=== PATIENT | male | born 1960 | race Caucasian/White ===

== ENCOUNTER 2017-03-08 07:28 | Day surgery (SDC) | payer BC ==
[~2017-03-08] VITALS: Ht 175.3 cm; Wt 86.2 kg
[~2017-03-08 07:28] MED LIST: ACYCLOVIR800 MG PO; ALEVE220 M1 PO; AMOXICILLIN/CL875 MG OR; AMOXICILLIN500 MG PO; AMOXICILLIN875 MG OR; ANTIVERT12.5 MG PO; ASPIRIN EC81 MG PO; ASPIRIN81 MG PO; AUGMENTIN875TAB PO; BACTRIM DS1 TAB PO; CIALIS20 MG; CIPRO500 MG PO; CIPROFLOXACN500 MG PO; EPIPEN0.3 MG IM; FLEXERIL10 MG PO; FLEXERIL5 M1 PO; FLONASE NASAL50 MCG; FLUTICASONE50 MCG; FLUZONE SPLT1 M1 IM; LEVITRA10 MG PO; LEVITRA20 MG OR; MAALOX/BEN PO; MULTI VIT PO; NAPROSYN500 MG PO; PATANOL0.1 % OP; SINGULAIR10 MG PO; SOLU-MEDROL125 MG IM; TET/DIP TOX1 ML IM; VIAGRA100 MG PO; ZITHROMAX250 MG PO; ZYRTEC10 MG PO; [UNRECOGNIZED DRUG - OTHER] PO
[2017-03-08 10:34] VITALS: BP 135/80
== END 2017-03-08 10:25 | disposition home or self-care (01) | DRG 951 ==
LOC: ENDO 07:28 → ORM 10:30
PROVIDERS: ATTEND Surgery
PROC: 0DJD8ZZ Inspection of Lower Intestinal Tract, Via Natural or Artificial Opening Endoscopic (ICD-10-PCS; principal; 2017-03-08)
DX: Z12.11 Encounter for screening for malignant neoplasm of colon (principal); K63.5 Polyp of colon; K64.1 Second degree hemorrhoids; Z86.010 Personal history of colon polyps

== ENCOUNTER 2017-04-17 14:44 | Emergency (ER) | payer BC ==
[~2017-04-17] VITALS: Ht 175.3 cm; Wt 84.0 kg
[2017-04-17] MEDS ORDERED: CLEOCIN150 MG PO (15:02)
[2017-04-17 15:05] VITALS: BP 113/83
== END 2017-04-17 15:05 | disposition home or self-care (01) | DRG 603 ==
LOC: ED 14:44
DX: L03.116 Cellulitis of left lower limb (principal); S80.862A Insect bite (nonvenomous), left lower leg, initial encounter; W57.XXXA Bitten or stung by nonvenomous insect and other nonvenomous arthropods, initial encounter

== ENCOUNTER 2017-08-26 15:10 | Emergency (ER) | payer BC ==
[~2017-08-26] VITALS: Ht 175.3 cm; Wt 100.0 kg
[~2017-08-26 15:10] MED LIST changes: +CLEOCIN150 MG PO
[2017-08-26 15:51] LABS: HEMATOCRIT 42.3 % (39.0-50.0); HEMOGLOBIN 14.2 g/dl (14.0-18.0); IMMATURE GRANULOCYTES 0.2 % (0.0-1.0); MEAN CELL VOLUME 93.6 fL CALC (80.0-100.0); MEAN CORPUSCULAR HGB 31.4 pG CALC (26.0-32.0); MEAN CORPUSCULAR HGB CONC 33.6 g/L CALC (32.0-36.0); NEUT# 2.71 thou/uL (1.82-7.42); RED BLOOD COUNT 4.52 mill/uL (4.70-6.10); RED CELL DISTRI WIDTH 12.5 % (11.5-15.5)
[2017-08-26] MEDS ORDERED: EPIPEN 2-P0.3 MG/0.3 SC (15:58)
[2017-08-26] MEDS ORDERED: METOPROL TAR25 M1 PO (15:59)
[2017-08-26 16:02] LABS: ALBUMIN 3.6 g/dL (3.2-5.0); ALKALINE PHOSPHATASE 89 u/l (38-126); ANION GAP 16 (6-22 (CALC)); BILIRUBIN, TOTAL 0.4 mg/dL (0.0-1.4); BUN 20 mg/dL (9-20); BUN/CREATININE RATIO 19 (12-20 (CALC)); CARBON DIOXIDE 24 mmol/l (22-30); CHLORIDE 108 mmol/l (95-108); GFR > 60 ML/MIN (>=60 (CALC)); GFR FOR AFR.AMER. > 60 ML/MIN (>=60 (CALC)); POTASSIUM 4.1 mmol/l (3.5-5.1); SGOT/AST 30 u/l (17-59); SGPT/ALT 40 u/l (21-72); SODIUM 145 mmol/l (137-146); TOTAL PROTEIN 6.8 g/dL (6.3-8.2)
[2017-08-26 16:15] LABS: MYOGLOBIN 20 ng/mL (0 - 121)
[2017-08-26 17:35] LABS: URINE BILIRUBIN - DIPSTICK NEGATIVE (NEGATIVE); URINE BLOOD DIPSTICK NEGATIVE (NEGATIVE); URINE COLOR YELLOW; URINE GLUCOSE - DIPSTICK NEGATIVE (NEGATIVE); URINE KETONE NEGATIVE (NEGATIVE); URINE LEUK ESTERASE NEGATIVE (NEGATIVE); URINE NITRITE - DIPSTICK NEGATIVE (Negative); URINE PROTEIN - DIPSTICK NEGATIVE (NEG-TRACE); URINE SPECIFIC GRAVITY 1.025; URINE UROBILINOGEN - DIPSTICK 0.2 E.U./dL (0.2)
[2017-08-26 17:38] LABS: URINE CLARITY CLEAR
[2017-08-26] MEDS ORDERED: TORADOL PO (17:54)
[2017-08-26 17:59] VITALS: BP 118/61
== END 2017-08-26 17:58 | disposition home or self-care (01) | DRG 206 ==
LOC: ED 15:10
PROVIDERS: Family Medicine
DX: M94.0 Chondrocostal junction syndrome [Tietze] (principal)

== ENCOUNTER 2018-06-10 08:43 | Emergency (ER) | payer BC ==
[~2018-06-10] VITALS: Ht 175.3 cm; Wt 82.3 kg
[~2018-06-10 08:43] MED LIST changes: +EPIPEN 2-P0.3 MG/0.3 SC; +METOPROL TAR25 M1 PO; +TORADOL PO
[2018-06-10 09:42] LABS: HEMATOCRIT 40.2 % (39.0-50.0); HEMOGLOBIN 13.5 g/dl (14.0-18.0); IMMATURE GRANULOCYTES 1.2 % (0.0-5.0); MEAN CELL VOLUME 93.9 fL CALC (80.0-100.0); MEAN CORPUSCULAR HGB 31.5 pG CALC (26.0-32.0); MEAN CORPUSCULAR HGB CONC 33.6 g/L CALC (32.0-36.0); NEUT# 5.06 thou/uL (1.82-7.42); RED BLOOD COUNT 4.28 mill/uL (4.70-6.10)
[2018-06-10 09:44] LABS: ALBUMIN 3.5 g/dL (3.2-5.0); ALKALINE PHOSPHATASE 82 u/l (38-126); ANION GAP 13 (6-22 (CALC)); BILIRUBIN, TOTAL 0.9 mg/dL (0.0-1.4); BUN 15 mg/dL (9-20); BUN/CREATININE RATIO 15 (12-20 (CALC)); CARBON DIOXIDE 26 mmol/l (22-30); CHLORIDE 103 mmol/l (95-108); GFR > 60 ML/MIN (>=60 (CALC)); GFR FOR AFR.AMER. > 60 ML/MIN (>=60 (CALC)); LIPASE 328 u/l (23-300); POTASSIUM 4.2 mmol/l (3.5-5.1); SGOT/AST 23 u/l (17-59); SODIUM 138 mmol/l (137-146); TOTAL PROTEIN 6.3 g/dL (6.3-8.2)
[2018-06-10] MEDS ORDERED: COLACE100 MG PO (10:49)
[2018-06-10] MEDS ORDERED: LISINOPRIL5 MG PO (10:49)
[2018-06-10] MEDS ORDERED: MULTI VIT PO (10:49)
[2018-06-10] MEDS ORDERED: MUPIROCIN2 % EX (10:50)
[2018-06-10] MEDS ORDERED: LORTAB 5/3255 MG PO (10:50)
[2018-06-10] MEDS ORDERED: AMIODARONE200 MG PO (10:51)
[2018-06-10] MEDS ORDERED: METO25TAB PO (10:52)
[2018-06-10] MEDS ORDERED: FUROSEMIDE40 MG PO (10:53)
[2018-06-10] MEDS ORDERED: KLOR-CON M2020 MEQ PO (10:53)
[2018-06-10 10:55] LABS: URINE BLOOD DIPSTICK TRACE-LYSED (NEGATIVE); URINE COLOR YELLOW; URINE GLUCOSE - DIPSTICK NEGATIVE (NEGATIVE); URINE KETONE NEGATIVE (NEGATIVE); URINE LEUK ESTERASE NEGATIVE (NEGATIVE); URINE NITRITE - DIPSTICK NEGATIVE (Negative); URINE PH 6.5 (4.5-8.0); URINE PROTEIN - DIPSTICK TRACE mg/dL (NEG-TRACE)
[2018-06-10 10:57] LABS: URINE BILIRUBIN - DIPSTICK SMALL (NEGATIVE)
[2018-06-10] MEDS ORDERED: CYCLOBENZAPRINE5 MG PO (12:03)
[2018-06-10 12:17] VITALS: BP 117/71
== END 2018-06-10 12:17 | disposition home or self-care (01) | DRG 204 ==
LOC: ED 08:43
PROVIDERS: Family Medicine
DX: R07.81 Pleurodynia (principal)